=== PATIENT | female | born 1970 | race Caucasian/White ===

== ENCOUNTER 2019-07-25 10:01 | Day surgery (SDC) | payer OTHER ==
[2019-07-25] MEDS ORDERED: fentaNYL 250 MCG/5 ML VIAL IVP ONE (10:02)
[2019-07-25] MEDS ORDERED: PROPOFOL 200 MG/20 ML VIAL IVP ONE (10:02)
[2019-07-25] MEDS ORDERED: MIDAZOLAM 2 MG/2 ML VIAL IVP ONE (10:02)
[2019-07-25] MEDS ORDERED: SCOPOLAMINE PATCH TOP ONE (10:04)
[2019-07-25] MEDS ORDERED: ONDANSETRON 4 MG/2 ML VIAL ONE (10:04)
[2019-07-25] MEDS ORDERED: LACTATED RINGERS 1,000 ML IV ONE (10:07)
--- NOTE | 2019-07-25 11:50 | ANESTHESIA ---
Pre-Anesthesia VS, & Labs - Diagnosis screening colonoscopy - Procedure colonoscopy Vital Signs: Temp Pulse Resp BP Pulse Ox 36.1 C L 91 12 143/84 H 96 07/25/19 10:07 07/25/19 10:07 07/25/19 10:07 07/25/19 10:07 07/25/19 10:07 Height 5 ft 4 in Weight (kg) 100.6 kg - NPO >8 hours - Is Patient ?: No Home Medications and Allergies Home Medications: Ambulatory Orders Omeprazole 20 mg PO DAILY 07/24/19 Quetiapine Fumarate [Seroquel] 12.5 mg PO DAILY 07/24/19 Venlafaxine ER [Effexor ER] 75 mg PO DAILY 07/24/19 Omeprazole 20 mg PO DAILY 07/24/19 Quetiapine Fumarate [Seroquel] 12.5 mg PO DAILY 07/24/19 Venlafaxine ER [Effexor ER] 75 mg PO DAILY 07/24/19 Allergies/Adverse Reactions: Allergies Allergy/AdvReac Type Severity Reaction Status Date / Time No Known Drug Allergies Allergy Verified 07/24/19 14:45 Anes History & Medical History - Anesthetic History Anesthesia Complications: reports: No previous complications - Medical History Cardiovascular: reports: None Pulmonary: reports: None Gastrointestinal: reports: GERD, Colon polyps Urinary: reports: None Musculoskeletal: reports: None Endocrine/Autoimmune: reports: None Skin: reports: None - Surgical History General: Cholecystectomy, Colonoscopy Gynecologic: Hysterectomy Exam General: Alert Dental: WNL Mouth Opening: Greater than 4 Fingerbreadths Mallampati classification: II Thyromental Distance: greater than 6 cm Respiratory: Normal breath sounds Cardiovascular: Regular rate Plan Anesthesia Type: Total IV Consent for Procedure(s) Verified and Reviewed: Yes Code Status: Attempt Resuscitation ASA classification: 2-Mild systemic disease Is this case an emergency?: No (called in to rescue inadequate nurse sedation)
[2019-07-25 12:22] VITALS: BP 119/84
== END 2019-07-25 10:02 | disposition home or self-care (01) ==
LOC: SDS 10:01
PROVIDERS: ATTEND Surgery
PROC: 0DBP8ZZ Excision of Rectum, Via Natural or Artificial Opening Endoscopic (ICD-10-PCS; 2019-07-25)
PROC: 0DBK8ZZ Excision of Ascending Colon, Via Natural or Artificial Opening Endoscopic (ICD-10-PCS; principal; 2019-07-25 11:30)
DX: Z12.11 Encounter for screening for malignant neoplasm of colon (principal); K62.1 Rectal polyp; D12.2 Benign neoplasm of ascending colon; K64.8 Other hemorrhoids; K21.9 Gastro-esophageal reflux disease without esophagitis; F17.210 Nicotine dependence, cigarettes, uncomplicated
CPT/HCPCS: 45380; J3010; J3490; J7120